=== PATIENT | female | born 1930 | race Caucasian/White ===

== ENCOUNTER 2017-07-21 17:17 | Inpatient (IN) ==
[2017-07-21] MEDS ORDERED: DiltiaZEM 25 MG/5 ML INJECTION IVP ONE (17:27)
[2017-07-21] MEDS ORDERED: NS 500 ML IV ONE (17:27)
[2017-07-21] MEDS ORDERED: SALINE FLUSH 10ml SYRINGE IVF PRN (17:27)
--- NOTE | 2017-07-21 17:37 | Emergency Department Report ---
Cardiac General HPI - General Chief Complaint: Arrhythmia/Palpitations <NovemberTom 07/26/17 10:29> Stated Complaint: weak,dizzy,soa <NovemberTom 07/26/17 10:29> Time Seen by Provider: 07/21/17 17:26 <[facility] [place] 07/26/17 10:29> Source: patient <Elza Alvarado 07/21/17 17:41> Mode of arrival: EMS <Elza Alvarado 07/21/17 17:41> Limitations: no limitations <Elza Alvarado 07/21/17 17:41> - History of Present Illness HPI narrative: Pt presents from PCP office per EMS. She made an appointment after she had had SOA, dizziness, and nausea for about a week. An EKG was obtained and pt was found to be in A fib with RVR and transferred to ER. Pt reports cough for a bout 2 weeks <Elza Alvarado 07/21/17 18:51> Occurred At: home <Elza Alvarado 07/21/17 17:41> Onset (ago): day(s) <Elza Alvarado 07/21/17 17:41> Duration: constant <Elza Alvarado 07/21/17 17:41> Severity: moderate <Elza Alvarado 07/21/17 17:41> Context: occurred during rest, occurred during exertion <ChristianoElza Raya 07/21/17 17:41> Associated Symtoms: shortness of breath, nausea, vomiting <ChristianoElza Raya 07/21/17 17:41> History of Similar Symptoms: No <Elza Alvarado 07/21/17 17:41> - Related Data Home Medications Medication Instructions Recorded Confirmed Simvastatin 20 mg PO HS #0 09/15/12 07/21/17 Prilosec (Omeprazole) 10 mg 10 mg PO DAILY cap 03/06/17 07/21/17 capsule,delayed release Naproxen Sodium [Aleve] 220 mg PO Q8HR 07/21/17 07/21/17 Previous Rx's Medication Instructions Recorded Apixaban [Eliquis] 5 mg PO BID #60 tab 07/24/17 DiltiaZEM CD [Cardizem Cd] 240 mg PO DAILY #30 cap 07/24/17 Metoprolol Tartrate [Lopressor] 25 mg PO BIDWM #60 tab 07/24/17 <NovemberTom 07/26/17 10:29> Allergies Allergy/AdvReac Type Severity Reaction Status Date / Time codeine Allergy Mild JITTERY Verified 07/21/17 19:41 <November,Tom 07/26/17 10:29> Review of Systems All systems: reviewed and negative except as stated <Elza Alvarado 02/28 17:41> Constitutional: Reports: as per HPI <Elza Alvarado 07/21/17 17:41> Cardiovascular: Reports: as per HPI <Elza Alvarado 07/21/17 17:41> Respiratory: Reports: as per HPI <Elza Alvarado 07/21/17 17:41> Gastrointestinal: Reports: as per HPI <Elza Alvarado 07/21/17 17:41> Neurological: Reports: as per HPI <Elza Alvarado 07/21/17 17:41> [facility] Patient Stated Medical History Transient Ischemic Attacks ( Yes: 2011 TIA) Hypertension Yes Sleep Apnea No Gastroesophageal Reflux Yes Disease Other GI Yes: [facility] Medical History (Last Reviewed 03/26/17 @ 18:08 by Gina Saleh MD) Stroke (Resolved Medical ~09/2013) GERD (gastroesophageal reflux disease) (Chronic Medical) Hypertension (Chronic Medical) <07/26/17 10:29> Surgical History: Colon Resection. Hysterectomy. Appendectomy <Elza Alvarado 07/21/17 17:41> Family History: Family History (Last Reviewed 03/26/17 @ 18:08 by Gina Saleh MD) Mother Heart attack Hypertension <November,Tom 07/26/17 10:29> - Social History Smoking status: Never smoker <Elza Alvarado 07/21/17 17:41> Physical Exam - Limitations Limitations: no limitations <Elza Alvarado 07/21/17 17:41> - General General appearance: alert, in no apparent distress <Elza Alvarado 07/21 17:41> - Normal Exams: Head:: Normocephalic without trauma <Elza Alvarado 07/21/17 17:41> Eyes:: Pupils are PERRLA w/ EOMI <Elza Alvarado 07/21/17 17:41> Neck:: Full range of motion, without adenopathy <Elza Alvarado 17:41> Chest/Respirations:: Clear all musa, with good airflow, and symmetry bilaterally <Elza Alvarado 07/21/17 17:41> Cardiovascular:: Regular rate and rhythm, without murmur or gallop, Pulses 2+ all extremities, capillary refill, <2 seconds all extremities <Elza Alvarado 07/21/17 17:41> Abdomen:: Bowel sounds positive, soft, non-tender, non-distended <Elza Alvarado 07/21/17 17:41> Musculoskeletal:: No tenderness, or deformity noted, good range of motion, all extremities <Elza Alvarado 07/21/17 17:41> Integumentary:: No rashes <Elza Alvarado 07/21/17 17:41> Neurological:: Patient is alert, and oriented, cranial nerves, motor/sensory/ cerebellar, exams w/o gross deficits, to observation <Elza Alvarado 02/28 17:41> Psychiatric:: Patient exhibits, appropriate attention, emotion and affect < Elza Alvarado 07/21/17 17:41> Course Vital Signs Temperature 97.5 F 07/21/17 17:17 Pulse Rate 120 H 07/21/17 17:17 Respiratory Rate 18 07/21/17 17:17 Blood Pressure 154/94 H 07/21/17 17:17 Pulse Oximetry 94 07/21/17 17:17 Temperature 97.9 F 07/24/17 13:47 Pulse Rate 102 H 07/24/17 13:47 Respiratory Rate 18 07/24/17 13:47 Blood Pressure 140/72 H 07/24/17 13:47 Pulse Oximetry 97 07/24/17 13:47 <May,[facility] 07/26/17 10:29> Cardiac General - MDM Narrative Medical decision making narrative: X ray, EKG, and labs reviewed. Dr Jorgensen notified of findings and will admit pt to the ICU. Results and plan of care discussed with pt who's primary concern is the location of her . Nursing made aware. <ChristianoElza 07/21/17 18:51> - Differential Diagnosis Differential diagnosis: Likely: palpitations, sinus tachycardia, artial fibrillation, artial flutter, supraventricular tachycardia <KarelsheilaenmanuelElza 07/21/17 17:41> - Lab Data Attestation: I reviewed the patient's lab results. <Elza Alvarado [facility] 07/21 18:51> Result diagrams: 07/24/17 04:11 07/24/17 04:11 <[facility] 10[facility]29> Lab Results 07/21/17 07/21/17 07/21/17 Range/Units 17:49 17:49 17:49 WBC 6.2 (4.5-11.0) T/MM3 RBC 4.10 (4.00-5.20) M/MM3 Hgb 12.8 (12-16) GM/DL Hct 39.9 (36-46) % MCV 97.3 (80-100) UM3 MCH 31.2 (26-34) UUG MCHC 32.1 (31-37) GM/DL RDW Std Deviation 45.1 (36.9-50.2) FL Plt Count 266 (130-400) T/MM3 MPV 10.4 (9.4-12.4) UM3 Immature Gran % (Auto) 0.0 (0.0-0.5) % Neut % (Auto) 68.9 H (33-66) % Lymph % (Auto) 19.8 L (23-45) % [place] % (Auto) 8.1 (0-9.0) % Eos % (Auto) 2.9 (0-4) % Baso % (Auto) 0.3 (0-2) % Neut # (Auto) 4.3 (1.8-7.7) T/MM3 Lymph # (Auto) 1.2 (1-4.8) T/MM3 [place] # (Auto) 0.5 (0-0.8) T/MM3 Eos # (Auto) 0.2 (0-0.5) T/MM3 Baso # (Auto) 0.0 (0-0.2) T/MM3 Abs Immat Gran (auto) 0.00 (0.00-0.03) T/MM3 Turbidity < 20 (0-20) Sodium 142 (134-144) MEQ/L Potassium 4.1 (3.6-5) MEQ/L Chloride 106 (98-107) MEQ/L Carbon Dioxide 24 (22-30) MEQ/L Anion Gap 12 (5-15) MEQ/L BUN 11.0 (7-17) MG/DL Creatinine 0.9 (0.7-1.2) MG/DL GFR Calculation 60 BUN/Creatinine Ratio 12 (6-26) RATIO Glucose 99 (65-110) MG/DL Calculated Osmolality 272 (261-280) MOSM/KG Calcium 9.1 (8.4-10.2) MG/DL Magnesium (1.6-2.3) MG/DL Total Bilirubin 0.90 (0.20-1.30) MG/DL Icterus Index < 2 (0-7) AST 19 (14-36) U/L ALT 27 (9-52) U/L Alkaline Phosphatase 79 (38-126) U/L Creatine Kinase 33 (30-135) U/L Troponin I < 0.012 (0-0.12) ng/ml Total Protein 8.0 (6.3-8.2) G/DL Albumin 4.6 (3.5-5.0) G/DL Globulin 3.4 (2.4-3.6) G/DL Albumin/Globulin Ratio 1.4 (1.1-2.2) RATIO TSH (0.47-4.68) MIU/L Specimen Hemolysis < 15 (0-25) Ur Collection Type Urine, clean catch Urine Color Yellow (YELLOW) Urine Clarity Clear Urine pH 6.0 (5.0-8.0) Ur Specific [place] <=1.005 L (1.015-1.025) Urine Protein Negative (NEGATIVE) Urine Glucose (UA) Negative (NEGATIVE) Urine Ketones Negative (NEGATIVE) Urine Occult Blood Negative (NEGATIVE) Urine Nitrate Negative (NEGATIVE) Urine Bilirubin Negative (NEGATIVE) Urine Urobilinogen 0.2 (NORMAL) EU/DL Ur Leukocyte Esterase 1+ A (NEGATIVE) Urine RBC None seen (0-3) /HPF Urine WBC 5-10 H (0-5) /HPF Ur Squamous Epith Cells 10-20 Urine Bacteria Trace H (NEGATIVE) Ur Culture Indicated? Cult not indicated 07/22/17 Range/Units 03:49 WBC (4.5-11.0) T/MM3 RBC (4.00-5.20) M/MM3 Hgb (12-16) GM/DL Hct (36-46) % MCV (80-100) UM3 MCH (26-34) UUG MCHC (31-37) GM/DL RDW Std Deviation (36.9-50.2) FL Plt Count (130-400) T/MM3 MPV (9.4-12.4) UM3 Immature Gran % (Auto) (0.0-0.5) % Neut % (Auto) (33-66) % Lymph % (Auto) (23-45) % [place] % (Auto) (0-9.0) % Eos % (Auto) (0-4) % Baso % (Auto) (0-2) % Neut # (Auto) (1.8-7.7) T/MM3 Lymph # (Auto) (1-4.8) T/MM3 [place] # (Auto) (0-0.8) T/MM3 Eos # (Auto) (0-0.5) T/MM3 Baso # (Auto) (0-0.2) T/MM3 Abs Immat Gran (auto) (0.00-0.03) T/MM3 Turbidity < 20 (0-20) Sodium 143 (134-144) MEQ/L Potassium 3.7 (3.6-5) MEQ/L Chloride 107 (98-107) MEQ/L Carbon Dioxide 26 (22-30) MEQ/L Anion Gap 10 (5-15) MEQ/L BUN 7.0 (7-17) MG/DL Creatinine 0.7 D (0.7-1.2) MG/DL GFR Calculation 80 BUN/Creatinine Ratio 10 (6-26) RATIO Glucose 91 (65-110) MG/DL Calculated Osmolality 273 (261-280) MOSM/KG Calcium 9.1 (8.4-10.2) MG/DL Magnesium 2.1 (1.6-2.3) MG/DL Total Bilirubin (0.20-1.30) MG/DL Icterus Index < 2 (0-7) AST (14-36) U/L ALT (9-52) U/L Alkaline Phosphatase (38-126) U/L Creatine Kinase (30-135) U/L Troponin I < 0.012 (0-0.12) ng/ml Total Protein (6.3-8.2) G/DL Albumin (3.5-5.0) G/DL Globulin (2.4-3.6) G/DL Albumin/Globulin Ratio (1.1-2.2) RATIO TSH 3.66 (0.47-4.68) MIU/L Specimen Hemolysis < 15 (0-25) Ur Collection Type Urine Color (YELLOW) Urine Clarity Urine pH (5.0-8.0) Ur Specific [place] (1.015-1.025) Urine Protein (NEGATIVE) Urine Glucose (UA) (NEGATIVE) Urine Ketones (NEGATIVE) Urine Occult Blood (NEGATIVE) Urine Nitrate (NEGATIVE) Urine Bilirubin (NEGATIVE) Urine Urobilinogen (NORMAL) EU/DL Ur Leukocyte Esterase (NEGATIVE) Urine RBC (0-3) /HPF Urine WBC (0-5) /HPF Ur Squamous Epith Cells Urine Bacteria (NEGATIVE) Ur Culture Indicated? <NovemberTom M - 07/26/17 10:29> Lab Results 07/21/17 07/21/17 07/21/17 Range/Units 17:49 17:49 17:49 WBC 6.2 (4.5-11.0) T/MM3 RBC 4.10 (4.00-5.20) M/MM3 Hgb 12.8 (12-16) GM/DL Hct 39.9 (36-46) % MCV 97.3 (80-100) UM3 MCH 31.2 (26-34) UUG MCHC 32.1 (31-37) GM/DL RDW Std Deviation 45.1 (36.9-50.2) FL Plt Count 266 (130-400) T/MM3 MPV 10.4 (9.4-12.4) UM3 Immature Gran % (Auto) 0.0 (0.0-0.5) % Neut % (Auto) 68.9 H (33-66) % Lymph % (Auto) 19.8 L (23-45) % [place] % (Auto) 8.1 (0-9.0) % Eos % (Auto) 2.9 (0-4) % Baso % (Auto) 0.3 (0-2) % Neut # (Auto) 4.3 (1.8-7.7) T/MM3 Lymph # (Auto) 1.2 (1-4.8) T/MM3 [place] # (Auto) 0.5 (0-0.8) T/MM3 Eos # (Auto) 0.2 (0-0.5) T/MM3 Baso # (Auto) 0.0 (0-0.2) T/MM3 Abs Immat Gran (auto) 0.00 (0.00-0.03) T/MM3 Turbidity < 20 (0-20) Sodium 142 (134-144) MEQ/L Potassium 4.1 (3.6-5) MEQ/L Chloride 106 (98-107) MEQ/L Carbon Dioxide 24 (22-30) MEQ/L Anion Gap 12 (5-15) MEQ/L BUN 11.0 (7-17) MG/DL Creatinine 0.9 (0.7-1.2) MG/DL GFR Calculation 60 BUN/Creatinine Ratio 12 (6-26) RATIO Glucose 99 (65-110) MG/DL Calculated Osmolality 272 (261-280) MOSM/KG Calcium 9.1 (8.4-10.2) MG/DL Magnesium (1.6-2.3) MG/DL Total Bilirubin 0.90 (0.20-1.30) MG/DL Icterus Index < 2 (0-7) AST 19 (14-36) U/L ALT 27 (9-52) U/L Alkaline Phosphatase 79 (38-126) U/L Creatine Kinase 33 (30-135) U/L Troponin I < 0.012 (0-0.12) ng/ml Total Protein 8.0 (6.3-8.2) G/DL Albumin 4.6 (3.5-5.0) G/DL Globulin 3.4 (2.4-3.6) G/DL Albumin/Globulin Ratio 1.4 (1.1-2.2) RATIO TSH (0.47-4.68) MIU/L Specimen Hemolysis < 15 (0-25) Ur Collection Type Urine, clean catch Urine Color Yellow (YELLOW) Urine Clarity Clear Urine pH 6.0 (5.0-8.0) Ur Specific [place] <=1.005 L (1.015-1.025) Urine Protein Negative (NEGATIVE) Urine Glucose (UA) Negative (NEGATIVE) Urine Ketones Negative (NEGATIVE) Urine Occult Blood Negative (NEGATIVE) Urine Nitrate Negative (NEGATIVE) Urine Bilirubin Negative (NEGATIVE) Urine Urobilinogen 0.2 (NORMAL) EU/DL Ur Leukocyte Esterase 1+ A (NEGATIVE) Urine RBC None seen (0-3) /HPF Urine WBC 5-10 H (0-5) /HPF Ur Squamous Epith Cells 10-20 Urine Bacteria Trace H (NEGATIVE) Ur Culture Indicated? Cult not indicated 07/22/17 Range/Units 03:49 WBC (4.5-11.0) T/MM3 RBC (4.00-5.20) M/MM3 Hgb (12-16) GM/DL Hct (36-46) % MCV (80-100) UM3 MCH (26-34) UUG MCHC (31-37) GM/DL RDW Std Deviation (36.9-50.2) FL Plt Count (130-400) T/MM3 MPV (9.4-12.4) UM3 Immature Gran % (Auto) (0.0-0.5) % Neut % (Auto) (33-66) % Lymph % (Auto) (23-45) % [place] % (Auto) (0-9.0) % Eos % (Auto) (0-4) % Baso % (Auto) (0-2) % Neut # (Auto) (1.8-7.7) T/MM3 Lymph # (Auto) (1-4.8) T/MM3 [place] # (Auto) (0-0.8) T/MM3 Eos # (Auto) (0-0.5) T/MM3 Baso # (Auto) (0-0.2) T/MM3 Abs Immat Gran (auto) (0.00-0.03) T/MM3 Turbidity < 20 (0-20) Sodium 143 (134-144) MEQ/L Potassium 3.7 (3.6-5) MEQ/L Chloride 107 (98-107) MEQ/L Carbon Dioxide 26 (22-30) MEQ/L Anion Gap 10 (5-15) MEQ/L BUN 7.0 (7-17) MG/DL Creatinine 0.7 D (0.7-1.2) MG/DL GFR Calculation 80 BUN/Creatinine Ratio 10 (6-26) RATIO Glucose 91 (65-110) MG/DL Calculated Osmolality 273 (261-280) MOSM/KG Calcium 9.1 (8.4-10.2) MG/DL Magnesium 2.1 (1.6-2.3) MG/DL Total Bilirubin (0.20-1.30) MG/DL Icterus Index < 2 (0-7) AST (14-36) U/L ALT (9-52) U/L Alkaline Phosphatase (38-126) U/L Creatine Kinase (30-135) U/L Troponin I < 0.012 (0-0.12) ng/ml Total Protein (6.3-8.2) G/DL Albumin (3.5-5.0) G/DL Globulin (2.4-3.6) G/DL Albumin/Globulin Ratio (1.1-2.2) RATIO TSH 3.66 (0.47-4.68) MIU/L Specimen Hemolysis < 15 (0-25) Ur Collection Type Urine Color (YELLOW) Urine Clarity Urine pH (5.0-8.0) Ur Specific [place] (1.015-1.025) Urine Protein (NEGATIVE) Urine Glucose (UA) (NEGATIVE) Urine Ketones (NEGATIVE) Urine Occult Blood (NEGATIVE) Urine Nitrate (NEGATIVE) Urine Bilirubin (NEGATIVE) Urine Urobilinogen (NORMAL) EU/DL Ur Leukocyte Esterase (NEGATIVE) Urine RBC (0-3) /HPF Urine WBC (0-5) /HPF Ur Squamous Epith Cells Urine Bacteria (NEGATIVE) Ur Culture Indicated? <Elza Alvarado 07/21/17 18:51> - Radiology Data Attestation: I reviewed the patient's radiology results. (read per Dr Hobbs) < Elza Alvarado 07/21/17 18:51> Disposition Clinical Impression: Atrial fibrillation with RVR <November,Tom 07/26/17 10:29> Disposition: 02 To [facility] <eb 07/26/17 10:29> Condition: Improved <November,Tom 07/26/17 10:29> Instructions: <07/26/17 10:29> Prescriptions: New Apixaban [Eliquis] 5 mg PO BID #60 tab DiltiaZEM CD [Cardizem Cd] 240 mg PO DAILY #30 cap Metoprolol Tartrate [Lopressor] 25 mg PO BIDWM #60 tab Continue Simvastatin 20 mg PO HS #0 Naproxen Sodium [Aleve] 220 mg PO Q8HR Prilosec (Omeprazole) 10 mg capsule,delayed release 10 mg PO DAILY cap Discontinued Aspirin [ASA] 325 mg PO DAILY Norvasc (amlodipine) 5 mg tablet 5 mg PO DAILY tab <eb 10:29> Referrals: Beulah Bush MD [Primary Care Provider] - <eb 10:29> Forms: <eb 07/26/17 10:29> Time of Disposition: 18:48 <Elza Alvarado 07/21/17 18:51> - Seen By: midlevel <Elza Alvarado 07/21/17 18:51>
[2017-07-21] MEDS ORDERED: SALINE FLUSH 10ml SYRINGE IV ONE (19:44)
[2017-07-21] MEDS ORDERED: FentaNYL 100 MCG/2 ML INJECTION IVP ONE (19:44)
[2017-07-21] MEDS ORDERED: MIDAZOLAM 2mg/2ml INJECTION IVP ONE (19:44)
[2017-07-21] MEDS ORDERED: ONDANSETRON 4 MG/2 ML INJECTION IVP PRN (20:09)
[2017-07-21] MEDS ORDERED: ACETAMINOPHEN 500 MG TABLET PO PRN (20:09)
[2017-07-21] MEDS ORDERED: NAPROXEN 220 MG TABLET PO PRN (20:09)
[2017-07-21 20:28] VITALS: BMI 24.0
[2017-07-21] MEDS: DiltiaZEM IR 30 MG TABLET PO SCH (20:46)
[2017-07-21] MEDS: ENOXAPARIN 60 MG/0.6 ML INJECTION SQ SCH (20:46)
[2017-07-21] MEDS: SIMVASTATIN 20 MG TABLET PO SCH (22:10)
[2017-07-22] MEDS: DiltiaZEM IR 30 MG TABLET PO SCH ×3 (03:55→20:32)
--- NOTE | 2017-07-22 07:53 | XRay Report ---
Indication: A-fib with RVR PROCEDURE: XR chest 1V: Encounter: Initial Comparison: September 28, 2013 Findings: The lungs are stable in appearance without new focal airspace consolidation. There is no pleural effusion or pneumothorax. The heart size, pulmonary vascularity and mediastinal contours are unchanged. IMPRESSION: Stable appearance of the chest without acute cardiopulmonary disease. .
[2017-07-22] MEDS: DiltiaZEM Drip 125 MG in NS 125 ML IV SCH (09:59)
[2017-07-22] MEDS: ENOXAPARIN 60 MG/0.6 ML INJECTION SQ SCH ×2 (10:00→20:32)
--- NOTE | 2017-07-22 10:13 | Cardiology History & Physical ---
History of Present Illness Chief complaint: SOA, lightheadedness, chest tightness HPI: Elle is a 86 year old female who presented from PCP office per EMS after having she had SOA, dizziness, and nausea for about 7-10 days. EKG showed A fib with RVR and she was admitted to CCU in the care of Dr. Shah. I examined her in CCU where she reports cough of about 2 weeks, SOA, Chest tightness and lightheadedness the last 7-10days. She denies fever, chills, sore throat, cough, palpitations, N/V/D, dysuria. Review of Systems - Constitutional Constitutional: Absent: chills, fatigue, fever(s) - EENMT Eyes: Absent: change in vision Balance: Absent: vertigo Mouth/Throat: Absent: sore throat - Cardiovascular Cardiovascular: Present: chest pain (tightness), dyspnea on exertion. Absent: palpitations, syncope, orthopnea, edema Rhythm: Absent: abnormal rhythm Vascular: Absent: pedal edema - Respiratory Respiratory: Present: cough, dyspnea on exertion - Gastrointestinal Gastrointestinal: Absent: diarrhea, nausea, vomiting - Genitourinary Genitourinary: Absent: dysuria - Integumentary/Breasts Integumentary: Absent: rash - Neurological Neurological: Absent: dizziness - Endocrine Endocrine: Absent: palpitations PFSH Patient Stated Medical History Transient Ischemic Attacks ( Yes: 2011 TIA) Hypertension Yes Gastroesophageal Reflux Yes Disease Other GI Yes: [facility] Medical History (Last Reviewed 03/26/17 @ 18:08 by Gina Saleh MD) Stroke (Resolved Medical ~09/2013) GERD (gastroesophageal reflux disease) (Chronic Medical) Hypertension (Chronic Medical) Surgical History: Colon Resection. Hysterectomy. Appendectomy Family History: Family History (Last Reviewed 03/26/17 @ 18:08 by Gina Saleh MD) Mother Heart attack, in her 40s Hypertension Brother CVA, in his 30s - Social History Smoking status: Former smoker Substance use type: does not use Alcohol intake frequency: does not drink Housing: house Household members: spouse Current occupational status: retired Current residence: Apartment/Private Home Medications Home Medications Medication Instructions Recorded Confirmed Type Simvastatin 20 mg PO HS #0 09/15/12 07/21/17 History Norvasc (amlodipine) 5 mg tablet 5 mg PO DAILY tab 08/24/17 01/08/18 History Prilosec (Omeprazole) 10 mg 10 mg PO DAILY cap 03/06/17 07/21/17 History capsule,delayed release Aspirin [ASA] 325 mg PO DAILY 07/21/17 07/21/17 History Naproxen Sodium [Aleve] 220 mg PO Q8HR 07/21/17 07/21/17 History Allergies Allergy/AdvReac Type Severity Reaction Status Date / Time codeine Allergy Mild JITTERY Verified 07/21/17 19:41 Exam Vital signs: Temperature 98.3 F 07/21/17 20:30 Pulse Rate 102 H 07/22/17 07:00 Respiratory Rate 23 07/22/17 07:00 Blood Pressure 147/104 H 07/22/17 07:00 Pulse Oximetry 97 07/22/17 07:00 - Constitutional no acute distress, well nourished, cooperative - Routine HEENT Exam Head: Present: normocephalic ENT: Present: mucous membranes moist - Routine Neck Exam Absent: JVD, carotid bruit - Routine Chest/Breast/Axilla Exam Chest wall: Present: tenderness - Routine Respiratory Exam Present: CTA bilaterally. Absent: rales, wheezes - Routine Cardiovascular Exam Present: RRR, no murmur. Absent: JVD - Routine Abdominal Exam Present: soft, normoactive bowel sounds - Routine Extremities Exam Present: no edema - Routine Skin Exam Present: intact, dry, warm - Routine Neurological Exam Present: alert, oriented X3 - Routine Psychiatric Exam Present: normal affect, normal thought process Results 07/23/17 04:01 07/23/17 04:01 Cardiac Enzymes 07/22/17 Range/Units 03:49 Troponin I < 0.012 (0-0.12) ng/ml Comprehensive Metabolic Panel 07/22/17 Range/Units 03:49 Sodium 143 (134-144) MEQ/L Potassium 3.7 (3.6-5) MEQ/L Chloride 107 (98-107) MEQ/L Carbon Dioxide 26 (22-30) MEQ/L BUN 7.0 (7-17) MG/DL Creatinine 0.7 D (0.7-1.2) MG/DL Glucose 91 (65-110) MG/DL Calcium 9.1 (8.4-10.2) MG/DL Intake and Output 07/21/17 07/22/17 07/22/17 22:59 06:59 14:59 Output Total 600 / 600 850 / 850 Balance -600 / -100 -850 / -850 Output: Urine 600 / 600 850 / 850 Other: Urine Appearance Clear Clear Urine Color Yellow Yellow Urine Odor Normal Weight 135 lb 5.821 oz 131 lb 9.855 oz Patient Weight 07/23/17 06:59 Weight 131 lb 9.855 oz - Imaging and Cardiology Echo: pending (renetta/ ddcv report) Imaging & Cardiology Narrative: Date of Exam: 07/21/17 Ordering Provider: Tom Hobbs DO Type of Exam(s): XR chest 1V Reason for Exam(s): A-fib with RVR Indication: A-fib with RVR PROCEDURE: XR chest 1V: Encounter: Initial Comparison: September 28, 2013 Findings: The lungs are stable in appearance without new focal airspace consolidation. There is no pleural effusion or pneumothorax. The heart size, pulmonary vascularity and mediastinal contours are unchanged. IMPRESSION: Stable appearance of the chest without acute cardiopulmonary disease. EKG interpretations - EKG EKG shows: atrial fibrillation - Blocks, axis, hypertrophy, ST abn Repolarization changes or abnormalities: nonspecific abnormality, ST segment, and/or T wave Hospital Course This is a general summary of the patient's hospital course. For more details refer to the complete medical record. Assessment and Plan - Attestation Attestation Narrative: 07/23/17 09:39 Recommendation After examining the patient I agree with the above assessment. I am involved in the formulation of the patient's plan of care. - Assessment and Plan (1) Atrial fibrillation with RVR Current visit: Yes Status: Acute Cardizem drip, titrate to keep HR <100 - NPO for RENETTA/DCCV today - Lovenox 1mg/kg SQ given this am, will change to oral agent (2) Hypertension Current visit: No Status: Chronic After Cardizem discontinued, continue Amlodipine for BP control (3) Mixed hyperlipidemia Current visit: Yes Status: Acute Continue Simvastatin (4) GERD (gastroesophageal reflux disease) Current visit: No Status: Chronic
[2017-07-22] MEDS: --POM--AMLODIPINE 5 MG TABLET PO SCH (12:37)
[2017-07-22] MEDS: --POM--ASPIRIN 325 MG TABLET PO SCH (12:38)
[2017-07-22] MEDS: OMEPRAZOLE 10 MG CAPSULE PO SCH (12:38)
[2017-07-22] MEDS ORDERED: SALINE FLUSH 10ml SYRINGE ONE (12:46)
[2017-07-22] MEDS ORDERED: NITROGLYCERIN 0.4 MG SUBLINGUAL TABLET SL PRN (13:18)
[2017-07-22] MEDS ORDERED: LORazepam 1 MG TABLET PO PRN (13:18)
[2017-07-22] MEDS ORDERED: BISACODYL 10 MG SUPPOSITORY RECTALLY PRN (13:18)
[2017-07-22] MEDS ORDERED: MAG-AL + SIM ORAL LIQUID 30ml PO PRN (13:18)
[2017-07-22] MEDS ORDERED: METOCLOPRAMIDE 10mg/2ml INJECTION IVP PRN (13:18)
[2017-07-22] MEDS ORDERED: AMIODARONE 150 MG in NS 100 ML IV ONE (13:18)
[2017-07-22] MEDS ORDERED: PROMETHAZINE 25 MG INJECTION IVP PRN (13:18)
[2017-07-22] MEDS ORDERED: AMIODARONE 450 MG in NS 500ml 250 ML IV SCH (13:19)
[2017-07-22] MEDS ORDERED: AMIODARONE 900 MG in NS 500ml 500 ML IV SCH (13:19)
[2017-07-22] MEDS: SIMVASTATIN 20 MG TABLET PO SCH (20:33)
[2017-07-22] MEDS ORDERED: SIMVASTATIN 20 MG TABLET PO SCH (21:00)
[2017-07-23] MEDS: DiltiaZEM IR 30 MG TABLET PO SCH (04:19)
[2017-07-23] MEDS: ENOXAPARIN 60 MG/0.6 ML INJECTION SQ SCH (08:24)
[2017-07-23] MEDS: --POM--AMLODIPINE 5 MG TABLET PO SCH (08:25)
[2017-07-23] MEDS: --POM--ASPIRIN 325 MG TABLET PO SCH (08:26)
[2017-07-23] MEDS: OMEPRAZOLE 10 MG CAPSULE PO SCH (08:26)
[2017-07-23] MEDS ORDERED: OMEPRAZOLE 10 MG CAPSULE PO SCH (09:00)
[2017-07-23] MEDS ORDERED: AMIODARONE 150 MG in NS 100 ML IV ONE (11:34)
[2017-07-23] MEDS: AMLODIPINE 5 MG TABLET PO SCH (11:45)
--- NOTE | 2017-07-23 13:56 | Progress Note ---
Progress Note: Elle is seen in follow up for A Fib with RVR. She converted to SR yesterday following unsuccessful DCCV and initiation of IV Amiodarone. However, later she went back in to AFib with RVR and remained, despite IV Amiodarone bolus. Second DCCV attempted today by under conscious sedation was unsuccessful. Goal of medical treatment is changed from rhythm control to rate control. Short acting Cardizem is changed to long acting 180mg daily, Lovenox changed to Eliquis 5mg BID. IV Amiodarone stopped. Continue to monitor cardiac telemetry and repeat EKG in am. Stable for transfer to medical floor.
--- NOTE | 2017-07-23 14:36 | Echocardiogram ---
DATE OF PROCEDURE July 22, 2017 The patient is a pleasant 86-year-old lady who was admitted with symptomatic atrial fibrillation of unknown duration and was referred for transesophageal echocardiogram and possible cardioversion. Informed consent was obtained after explaining the procedure and the potential risks to the patient who agreed to proceed with the procedure. PROCEDURE 1. Transesophageal echocardiogram. 2. DC cardioversion. Conscious sedation was performed using Versed and fentanyl. Cetacaine spray was used for pharyngeal anesthesia. Probe was advanced into the esophagus and stomach and images were obtained in multiple planes. Left atrium is dilated. Left ventricular end-diastolic dimension is normal. Left ventricle wall thickness is normal. LV systolic function is normal with ejection fraction of about 65%. There is no thrombus in left atrium, left atrial appendage or left ventricle. Right atrium is dilated. Right ventricle is normal. Mitral valve is morphologically normal with moderate mitral regurgitation. Aortic valve is a trileaflet structure with fibrocalcific changes with no stenosis or insufficiency. Tricuspid valve shows moderate tricuspid regurgitation. Pulmonary valve shows trace of pulmonary insufficiency. There is no pericardial effusion. Agitated saline was injected which showed no evidence of [id number] shunt. Descending thoracic aorta shows mild atherosclerosis. IMPRESSION 1. Biatrial dilation. 2. No intracardiac thrombus or mass. 3. Normal LV systolic function with ejection fraction of 65%. 4. Moderate mitral regurgitation. 5. Moderate tricuspid regurgitation. 6. Trace of pulmonary insufficiency. 7. Mild atherosclerosis of the descending thoracic aorta. After reviewing the images we decided to proceed with cardioversion. Anterior- posterior Zoll pads were applied. 360 joules of energy was delivered in synchronized manner and patient failed to convert to sinus. Repeat cardioversion was performed at previous settings and again patient failed to convert to sinus. The patient tolerated the procedure well with no complications. IMPRESSION 1. Unsuccessful attempt in cardioversion of atrial fibrillation to sinus rhythm. PLAN Will go ahead and start her on amiodarone and repeat cardioversion on amiodarone tomorrow. BERE
[2017-07-23] MEDS ORDERED: FentaNYL 100 MCG/2 ML INJECTION IVP ONE (15:27)
[2017-07-23] MEDS ORDERED: SALINE FLUSH 10ml SYRINGE IV ONE (15:27)
[2017-07-23] MEDS ORDERED: MIDAZOLAM 2mg/2ml INJECTION IVP ONE (15:27)
[2017-07-23] MEDS: DiltiaZEM Drip 125 MG in NS 125 ML IV SCH (20:27)
[2017-07-23] MEDS: SIMVASTATIN 20 MG TABLET PO SCH (21:17)
[2017-07-23] MEDS: APIXABAN 5 MG TABLET PO SCH (21:17)
[2017-07-24] MEDS: --POM--AMLODIPINE 5 MG TABLET PO SCH (10:07)
[2017-07-24] MEDS: AMLODIPINE 5 MG TABLET PO SCH (10:20)
[2017-07-24] MEDS: OMEPRAZOLE 10 MG CAPSULE PO SCH ×2 (10:21→10:22)
[2017-07-24] MEDS: APIXABAN 5 MG TABLET PO SCH (10:26)
[2017-07-24 13:47] VITALS: BP 140/72; PULSE 102; RESP 18; TEMP 97.9; O2SAT 97
--- NOTE | 2017-07-24 14:15 | Discharge Summary ---
<Mary Kate Lopez - Last Filed: 07/24/17 14:26> Discharge Information Date of admission: 07/22/17 14:36 Anticipated date of discharge: 07/24/17 Attending Physician: Mor Shah MD Primary care physician: Beulah Bush MD - Discharge Diagnosis (1) Atrial fibrillation with RVR Status: Acute (2) Hypertension Status: Chronic (3) GERD (gastroesophageal reflux disease) Status: Chronic (4) Mixed hyperlipidemia Status: Chronic Atrial fibrillation - Procedures Procedures: Date of Exam: 07/22/17 Type of Exam(s): US renetta w/ doppler DATE OF PROCEDURE July 22, 2017 The patient is a pleasant 86-year-old lady who was admitted with symptomatic atrial fibrillation of unknown duration and was referred for transesophageal echocardiogram and possible cardioversion. Informed consent was obtained after explaining the procedure and the potential risks to the patient who agreed to proceed with the procedure. PROCEDURE 1. Transesophageal echocardiogram. 2. DC cardioversion. Conscious sedation was performed using Versed and fentanyl. Cetacaine spray was used for pharyngeal anesthesia. Probe was advanced into the esophagus and stomach and images were obtained in multiple planes. Left atrium is dilated. Left ventricular end-diastolic dimension is normal. Left ventricle wall thickness is normal. LV systolic function is normal with ejection fraction of about 65%. There is no thrombus in left atrium, left atrial appendage or left ventricle. Right atrium is dilated. Right ventricle is normal. Mitral valve is morphologically normal with moderate mitral regurgitation. Aortic valve is a trileaflet structure with fibrocalcific changes with no stenosis or insufficiency. Tricuspid valve shows moderate tricuspid regurgitation. Pulmonary valve shows trace of pulmonary insufficiency. There is no pericardial effusion. Agitated saline was injected which showed no evidence of ldrwx-pi-madl shunt. Descending thoracic aorta shows mild atherosclerosis. IMPRESSION 1. Biatrial dilation. 2. No intracardiac thrombus or mass. 3. Normal LV systolic function with ejection fraction of 65%. 4. Moderate mitral regurgitation. 5. Moderate tricuspid regurgitation. 6. Trace of pulmonary insufficiency. 7. Mild atherosclerosis of the descending thoracic aorta. After reviewing the images we decided to proceed with cardioversion. Anterior- posterior Zoll pads were applied. 360 joules of energy was delivered in synchronized manner and patient failed to convert to sinus. Repeat cardioversion was performed at previous settings and again patient failed to convert to sinus. The patient tolerated the procedure well with no complications. IMPRESSION 1. Unsuccessful attempt in cardioversion of atrial fibrillation to sinus rhythm. PLAN Will go ahead and start her on amiodarone and repeat cardioversion on amiodarone tomorrow. - Laboratory Labs: 07/24/17 04:11 07/24/17 04:11 - Radiology Radiology: Date of Exam: 07/21/17 Ordering Provider: Tom Hobbs DO Type of Exam(s): XR chest 1V Reason for Exam(s): A-fib with RVR Indication: A-fib with RVR PROCEDURE: XR chest 1V: Encounter: Initial Comparison: September 28, 2013 Findings: The lungs are stable in appearance without new focal airspace consolidation. There is no pleural effusion or pneumothorax. The heart size, pulmonary vascularity and mediastinal contours are unchanged. IMPRESSION: Stable appearance of the chest without acute cardiopulmonary disease. History of Present Illness HPI: Elle is a 86 year old female who presented from PCP office per EMS after having she had SOA, dizziness, and nausea for about 7-10 days. EKG showed A fib with RVR and she was admitted to CCU in the care of Dr. Shah. I examined her in CCU where she reports cough of about 2 weeks, SOA, Chest tightness and lightheadedness the last 7-10days. She denies fever, chills, sore throat, cough, palpitations, N/V/D, dysuria. Hospital Course This is a general summary of the patient's hospital course. For more details refer to the complete medical record. Hospital course: 07/22/16 (1) Atrial fibrillation with RVR Cardizem drip, titrate to keep HR <100 - NPO for RENETTA/DCCV today - Lovenox 1mg/kg SQ given this am, will change to oral agent (2) Hypertension After Cardizem discontinued, continue Amlodipine for BP control (3) Mixed hyperlipidemia Continue Simvastatin (4) GERD (gastroesophageal reflux disease) 07/23/16 Elle is seen in follow up for A Fib with RVR. She converted to SR yesterday following unsuccessful DCCV and initiation of IV Amiodarone. However, later she went back in to AFib with RVR and remained, despite IV Amiodarone bolus. Second DCCV attempted today by under conscious sedation was unsuccessful. Goal of medical treatment is changed from rhythm control to rate control. Short acting Cardizem is changed to long acting 180mg daily, Lovenox changed to Eliquis 5mg BID. IV Amiodarone stopped. Continue to monitor cardiac telemetry and repeat EKG in am. Stable for transfer to medical floor. 07/24/16 Stop Amlodipine, increase Cardizem to 240mg daily - Add metoprolol 25mg BID as AFib RVR seems driven by catecholamines - Eliquis 5mg BID, Samples and co-pay card given. - Follow up with Dr. Shah on 08/13/16 at 1020 Time spent with patient: 25 - 35 minutes DVT Prophylaxis: Eliquis Exam Vital signs: Temperature 97.9 F 07/24/17 13:47 Pulse Rate 102 H 07/24/17 13:47 Respiratory Rate 18 07/24/17 13:47 Blood Pressure 140/72 H 07/24/17 13:47 Pulse Oximetry 97 07/24/17 13:47 - Constitutional no acute distress, well nourished, cooperative - Routine HEENT Exam Head: Present: normocephalic ENT: Present: mucous membranes moist - Routine Neck Exam Absent: JVD, carotid bruit - Routine Chest/Breast/Axilla Exam Chest wall: Absent: tenderness - Routine Respiratory Exam Present: CTA bilaterally. Absent: rales, wheezes - Routine Cardiovascular Exam Present: no murmur, irregular rhythm - Routine Abdominal Exam Present: soft, normoactive bowel sounds - Routine Extremities Exam Present: no edema - Routine Skin Exam Present: intact, dry, warm - Routine Neurological Exam Present: alert, oriented X3 - Routine Psychiatric Exam Present: normal affect, normal thought process Results 07/24/17 04:11 07/24/17 04:11 CBC 07/24/17 Range/Units 04:11 WBC 6.9 (4.5-11.0) T/MM3 RBC 3.88 L (4.00-5.20) M/MM3 Hgb 12.2 (12-16) GM/DL Hct 37.5 (36-46) % Plt Count 236 (130-400) T/MM3 Comprehensive Metabolic Panel 07/24/17 Range/Units 04:11 Sodium 140 (134-144) MEQ/L Potassium 3.9 (3.6-5) MEQ/L Chloride 108 H (98-107) MEQ/L Carbon Dioxide 23 (22-30) MEQ/L BUN 13.0 (7-17) MG/DL Creatinine 0.7 (0.7-1.2) MG/DL Glucose 100 (65-110) MG/DL Calcium 8.2 L (8.4-10.2) MG/DL Intake and Output 07/23/17 07/24/17 07/24/17 22:59 06:59 14:59 Intake Total 200 / 200 Balance 200 / 200 Intake: Oral 200 / 200 Other: Urine Appearance Clear Clear Urine Color Yellow Yellow Urine Odor Normal Normal Stool Color Brown Brown Stool Consistency Soft Soft Formed Size of Bowel Movement Small Smear # Voids 1 1 # Bowel Movements 1 Weight 134 lb 14.766 oz Patient Weight 07/25/17 06:59 Weight 134 lb 14.766 oz Discharge Plan - Med Rec/Dispo Referrals/Follow Up: Mor Shah MD [Physician] - 08/13/17 10:20 am [facility] Instructions: Metoprolol (By mouth) (Lopressor, Toprol XL), Diltiazem ( By mouth) (Cardizem, Cardizem CD, Cardizem LA, Cardizem SR), A-fib (Atrial Fibrillation) (DC) Prescriptions: New Apixaban [Eliquis] 5 mg PO BID #60 tab DiltiaZEM CD [Cardizem Cd] 240 mg PO DAILY #30 cap Metoprolol Tartrate [Lopressor] 25 mg PO BIDWM #60 tab Continue Simvastatin 20 mg PO HS #0 Naproxen Sodium [Aleve] 220 mg PO Q8HR Prilosec (Omeprazole) 10 mg capsule,delayed release 10 mg PO DAILY cap Discontinued Aspirin [ASA] 325 mg PO DAILY Norvasc (amlodipine) 5 mg tablet 5 mg PO DAILY tab - Disposition 01 Discharged Home, Self-Care - Dismissal Complete Discharge Instructions are:: Complete <Mor Shah - Last Filed: 07/25/17 13:13> Discharge Information Date of admission: 07/22/17 14:36 Attending Physician: Mor Shah MD Primary care physician: Beulah Bush MD - Discharge Diagnosis (1) Hypertension Status: Chronic (2) GERD (gastroesophageal reflux disease) Status: Chronic (3) Atrial fibrillation with RVR Status: Acute (4) Mixed hyperlipidemia Status: Chronic - Laboratory Labs: 07/24/17 04:11 07/24/17 04:11 Hospital Course This is a general summary of the patient's hospital course. For more details refer to the complete medical record. Exam Vital signs: Temperature 97.9 F 07/24/17 13:47 Pulse Rate 102 H 07/24/17 13:47 Respiratory Rate 18 07/24/17 13:47 Blood Pressure 140/72 H 07/24/17 13:47 Pulse Oximetry 97 07/24/17 13:47 Results 07/24/17 04:11 07/24/17 04:11 Attestation Narriative - Attestation Attestation Narrative: 07/25/17 13:13 Recommendation After examining the patient I agree with the above assessment. I am involved in the formulation of the patient's plan of care.
== END 2017-07-24 15:50 | disposition home or self-care (01) | DRG 310 ==
LOC: ED 17:17 → CCU 19:30 → INTOOBSV 19:43 → CCU 19:43 → SRG 07-23 18:54
PROVIDERS: ADMIT Internal Medicine Cardiovascular Disease; ATTEND Internal Medicine Cardiovascular Disease